=== PATIENT | female | born 1985 | race Asian ===

== ENCOUNTER 2016-11-11 10:10 | Emergency (ER) | payer OTHER ==
[~2016-11-11] VITALS: Ht 162.6 cm; Wt 98.5 kg
[2016-11-11 10:22] VITALS: Ht 162.6 cm; Wt 98.5 kg
[2016-11-11] MEDS ORDERED: TRAM50TA2 PO (11:16)
[2016-11-11] MEDS ORDERED: NAPR-260 PO (11:16)
[2016-11-11] MEDS ORDERED: ACET500C5 PO (11:17)
[2016-11-11] MEDS ORDERED: CYCL-319 PO (11:17)
--- NOTE | 2016-11-11 11:24 | ERD ---
ER Documentation Chief Complaint Date/Time DATE: 11/11/16 TIME: 11:20 Chief Complaint Pt with neck pain X 1 week, worst today. No injuries reported. HPI This is a 31-year-old female who presents to the emergency department today complaining of neck pain for the past 5 days and worse over the last couple of days. States she has taken Tylenol with limited improvement. 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 Patient denies any sore throat, chest,. Denies any fevers or chills. ROS All systems reviewed and are negative except as per history of present illness. Medications Home Meds Active Scripts Cyclobenzaprine Hcl* (Cyclobenzaprine Hcl*) 10 Mg Tablet, 10 MG PO QHS, #7 TAB Prov:ROSE JOHNSON-C 11/11/16 Acetaminophen* (Tylophen*) 500 Mg Capsule, 1 CAP PO Q6H Y for PAIN AND OR ELEVATED TEMP, #30 CAP Prov:ROSE JOHNSON PA-C 11/11/16 Naproxen* (Naprosyn*) 500 Mg Tablet, 500 MG PO BID Y for PAIN AND/OR INFLAMMATION, #30 TAB Prov:ROSE JOHNSONC 11/11/16 Tramadol HCl (Tramadol HCl) 50 Mg Tablet, 50 MG PO Q4 Y for PAIN, #20 TAB Prov:ROSE JOHNSON-C 11/11/16 Allergies Allergies: Uncoded Allergies: SULFA DRUGS (Allergy, Intermediate, swollen lips, 11/11/16) PMhx/Soc Medical and Surgical Hx: pt denies Medical Hx, pt denies Surgical Hx Hx Alcohol Use: No Hx Substance Use: No Hx Tobacco Use: No Smoking Status: Never smoker Physical Exam Vitals Vital Signs Date Time Temp Pulse Resp B/P Pulse Ox O2 Delivery O2 Flow Rate FiO2 11/11/16 10:22 98.4 82 18 127/87 99 Physical Exam Const: Obese, no acute distress Head: Atraumatic Eyes: Normal Conjunctiva ENT: Normal External Ears, Nose and Mouth. Throat no erythema no exudate nonno evidence of enlarged lymph node Neck: Full range of motion..~ No meningismus.. No midline tenderness. Bilateral paraspinal tenderness in upper trapezius tendon Resp: Clear to auscultation bilaterally Cardio: Regular rate and rhythm, no murmurs Abd: Soft, non tender, non distended. Normal bowel sounds Skin: No petechiae or rashes Neur: Awake and alert Psych: Normal Mood and Affect Results 24 hrs Current Medications Medications (Trade) Dose Ordered Sig/Bonnie Route PRN Reason Start Time Stop Time Status Last Admin Dose Admin Acetaminophen/ Hydrocodone Bitart ([place] (5/325)) 1 tab ONCE ONCE PO 11/11/16 11:30 11/11/16 11:31 11/11/16 11:18 Procedures/MDM This a 31-year-old female who presents to the emergency department today for neck pain for the past 5 days and worse over the last day. 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 Patient has had no trauma. She has no midline tenderness. She has no radicular symptoms. Patient is afebrile and otherwise well-appearing. She is able to move her neck and have low suspicion for torticollis at this time. I do not feel the patient requires laboratory workup or imaging at this time. Low suspicion for meningitis, strep pharyngitis, peritonsillar abscess, retropharyngeal abscess. There is no evidence of enlarged lymph nodes. Patient symptoms at this time most consistent with musculoskeletal spasm versus strain versus sprain secondary to increased studying. Patient was given [place] here in the emergency department. I did give her a short course of tramadol for home as well as Naprosyn and Tylenol and Flexeril. I have explained to the patient that she needs to apply ice and heat intermittently. I instructed the patient in stretching exercises. Instructed her to make sure that she has her study material at an appropriate level so that she is not constantly looking downwards. Patient understood. At this time the patient is stable for discharge and outpatient management. Patient should follow up with their PCP in the next 1-2 days. They may return to the emergency department sooner for any persistent or worsening of symptoms. Patient understood and agreed with the plan. Departure Diagnosis: Primary Impression: Neck pain Condition: Fair Patient Instructions: Your Neck Muscles, Neck Exercises: Active Neck Rotation, Neck Exercises: Neck Isometrics, Neck Pain, No Trauma, Neck Sprain/Strain Referrals: COMMUNITY CLINICS YOU HAVE RECEIVED A MEDICAL SCREENING EXAM AND THE RESULTS INDICATE THAT YOU DO NOT HAVE A CONDITION THAT REQUIRES URGENT TREATMENT IN THE EMERGENCY DEPARTMENT. FURTHER EVALUATION AND TREATMENT OF YOUR CONDITION CAN WAIT UNTIL YOU ARE SEEN IN YOUR DOCTORS OFFICE WITHIN THE NEXT 1-2 DAYS. IT IS YOUR RESPONSIBILITY TO MAKE AN APPOINTMENT FOR FOLOW-UP CARE. IF YOU HAVE A PRIMARY DOCTOR --you should call your primary doctor and schedule an appointment IF YOU DO NOT HAVE A PRIMARY DOCTOR YOU CAN CALL OUR PHYSICIAN REFERRAL HOTLINE AT IF YOU CAN NOT AFFORD TO SEE A PHYSICIAN YOU CAN CHOSE FROM THE FOLLOWING [facility] [address] [facility] [address] [facility] [address] [facility] [address] [facility] [address] [facility]. [facility]. [address] Additional Instructions: Call your primary care doctor TOMORROW for an appointment during the next 1-2 days.See the doctor sooner or return here if your condition worsens before your appointment time. Take tramadol for severe pain otherwise take Naprosyn or Tylenol or Motrin Take Flexeril for muscle spasms. Take only at night and do not drive while taking this medication. Apply ice and heat intermittently Do neck exercises and stretching ROSE JOHNSON PA-C Nov 11, 2016 11:24
[2016-11-11] MEDS ORDERED: HYDROCODONE/APAP (5/325) TAB PO ONE (11:30)
== END 2016-11-11 11:50 | disposition home or self-care (01) ==
LOC: FTE 10:10
DX: M54.2 Cervicalgia (principal)
CPT/HCPCS: 99284

== ENCOUNTER 2016-11-15 17:38 | Emergency (ER) | payer SELFPAY ==
[~2016-11-15] VITALS: Wt 81.8 kg
[~2016-11-15 17:38] MED LIST: ACET500C5 PO; CYCL-319 PO; NAPR-260 PO; TRAM50TA2 PO
[2016-11-15] MEDS ORDERED: IBUP-1542 PO (18:18)
[2016-11-15] MEDS ORDERED: HYDR-906 PO (18:19)
--- NOTE | 2016-11-15 18:24 | ERD ---
ER Documentation Chief Complaint Date/Time DATE: 11/15/16 TIME: 18:20 Chief Complaint neck pain HPI Patient is a 31-year-old female who presents to the emergency department with neck pain 1 week. Patient was seen here at the [facility] on 11-11-16. At that time she was diagnosed with musculoskeletal pain and muscle spasms. Patient states she has been taking the medication prescribed to her which does alleviate her pain however it is persistent. Patient reports taking Flexeril, naproxen and tramadol for her symptoms. Patient is requesting x-ray imaging at this time. Patient denies any fevers, chills, nausea, vomiting, throat pain, difficulty swallowing, recent falls or trauma. 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 She denies any pain radiating down her back, saddle anesthesia, urinary incontinence, stool incontinence, night pain. ROS All systems reviewed and are negative except as per history of present illness. Medications Home Meds Active Scripts Hydrocodone/Acetaminophen ([place] 5-325 Tablet) 1 Each Tablet, 1 TAB PO Q6H Y for PAIN, #7 TAB Prov:REBA MEDLEY PA-C 11/15/16 Ibuprofen* (Motrin*) 600 Mg Tab, 600 MG PO Q6, #30 TAB Prov:REBA MEDLEY PA-C 11/15/16 Cyclobenzaprine Hcl* (Cyclobenzaprine Hcl*) 10 Mg Tablet, 10 MG PO QHS, #7 TAB Prov:ROSE JOHNSON PA-C 11/11/16 Acetaminophen* (Tylophen*) 500 Mg Capsule, 1 CAP PO Q6H Y for PAIN AND OR ELEVATED TEMP, #30 CAP Prov:ROSE JOHNSON PA-C 11/11/16 Naproxen* (Naprosyn*) 500 Mg Tablet, 500 MG PO BID Y for PAIN AND/OR INFLAMMATION, #30 TAB Prov:ROSE JOHNSON PA-C 11/11/16 Tramadol HCl (Tramadol HCl) 50 Mg Tablet, 50 MG PO Q4 Y for PAIN, #20 TAB Prov:ROSE JOHNSON PA-C 11/11/16 Allergies Allergies: Uncoded Allergies: SULFA DRUGS (Allergy, Intermediate, swollen lips, 11/11/16) PMhx/Soc History of Surgery: No Anesthesia Reaction: No Hx Neurological Disorder: No Hx Respiratory Disorders: No Hx Cardiac Disorders: No Hx Psychiatric Problems: No Hx Miscellaneous Medical Probl: No Hx Alcohol Use: No Hx Substance Use: No Hx Tobacco Use: No FmHx Family History: No diabetes Physical Exam Vitals Vital Signs Date Time Temp Pulse Resp B/P Pulse Ox O2 Delivery O2 Flow Rate FiO2 11/15/16 17:42 98.7 86 20 119/73 97 Physical Exam GENERAL: Well-developed, well-nourished female. Appears in no acute distress. Speaking in full sentences HEAD: Normocephalic, atraumatic. No deformities or ecchymosis. EYE: Pupils equal, round, and reactive to light. EOMs intact. No conjunctival erythema. No eye discharge. ENT: External ear without any masses or tenderness. Auditory canals clear bilaterally. TM visualized bilaterally, non-erythematous, non-bulging. Nasal mucosa pink with no discharge. Oropharynx is pink without any tonsillar erythema or exudates. No uvula deviation. No kissing tonsils. NECK: Supple. No meningismus. Normal ROM of the neck. Nontender to palpation of the cervical midline spine. Lateral paraspinal tenderness of the upper trapezius muscle LUNG: Clear to auscultation bilaterally. No rhonchi, wheezing, rales or coarse breath sounds. HEART: Regular rate and rhythm. No murmurs, rubs or gallops. BACK: No midline tenderness. EXTREMITES: Equal pulses bilaterally. No peripheral clubbing, cyanosis or edema. No unilateral leg swelling. NEUROLOGIC: Alert and oriented to person, place and time. Moving all four extremities. 5/5 strength in all extremities. Normal speech. Steady gait. SKIN: Normal color. Warm and dry. No rashes or lesions. Procedures/MDM ED COURSE: The patient was stable throughout ED course. I kept the patient and/or family informed of laboratory and diagnostic imaging results throughout the ED course. DIAGNOSTIC IMAGING: Read by radiologist. DIAGNOSTIC IMAGING REPORT Patient: JENIFFER WILSON : 1985 Age: 31 Sex: F MR #: [id number] DOS: 11/15/16 1819 Ordering MD: REBA MEDLEY PA-C Location: [facility]TE Room/Bed: PROCEDURE: XR Cervical Spine. CLINICAL INDICATION: Cervical spine pain. TECHNIQUE: AP, lateral and odontoid views of the cervical spine were performed. The images were reviewed on a PACS workstation. COMPARISON: None available FINDINGS: There is diffuse straightening of the cervical spine without reversal of normal cervical lordosis. The vertebral body height and osseous mineralization are normal. There is no evidence of fracture or dislocation. There is no significant facet arthropathy. The uncovertebral joints are unremarkable. There are minimal anterior osteophytes at C4-5 and C5-6 with preservation of the intervertebral disc spaces. There are no abnormal calcifications. The prevertebral soft tissues are normal. No radiopaque foreign bodies are identified. IMPRESSION: 1. Diffuse straightening of the cervical spine which may be related to paraspinal muscle spasm versus positioning. 2. Mild degenerative disc disease at C4-5 and C5-6. 3. No evidence of fracture. RPTAT: HGAS .Robert Garcia MD, MD Date Time Electronically viewed and signed by .Robert Garcia MD, on 11/15/2016 20: 21 .S/ CC: REBA MEDLEY PA-C MEDICATIONS GIVEN: She was offered analgesic vacation however she declined. Patient was advised to notify myself or nursing staff if her pain increased. MEDICAL DECISION MAKING: This is a 31-year-old female who presents with neck pain 1 week. Vital signs were reviewed. Patient was afebrile. She was not hypoxic. ENT exam is normal. Neck exam revealed tenderness to palpation of the bilateral paraspinous muscles of the trapezius muscle. No cervical midline tenderness was noted. Patient was seen here approximately 4 days ago. X-ray imaging was obtained at this time given that patient's pain has persisted. Cervical spine Xrays showed diffuse straightening of the cervical spine which may be related to paraspinal muscle spasm versus positioning. Mild degenerative disc disease at C4-5 and C5- 6. No evidence of fracture. Given these findings, the patients presentation is most consistent with degenerative disc disease of the cervical spine and muscle spasms. I have a much lower clinical concern for cervical spine dislocation, cervical spine fracture, epidural abscess, cervical disk herniation , osteomyelitis, meningitis, whiplash injury, torticollis, strep pharyngitis, peritonsillar abscess, non-traumatic musculoskeletal neck pain or any acute neurological deficit. PRESCRIPTIONS: Ibuprofen [place]. Patient was advised to only take [place] one at rest and not operating any machinery. DISCHARGE: At this time, patient is stable for discharge and outpatient management. Patient provided with a copy of all imaging studies obtained today. RICE therapy and ROM exercises were advised to avoid stiffness. I have instructed the patient to follow-up with his/her primary care physician in 1-2 days. I have discussed with the patient the possibility of needing to see an youth career specialist for further workup and imaging if the pain persists. I have instructed the patient to promptly return to the ER for any new or worsening symptoms including increased pain, swelling, redness, warmth or fever. The patient and/or family expressed understanding of and agreement with this plan. All questions were answered. Home care instructions were provided. Departure Diagnosis: Primary Impression: Neck pain Additional Impression: Muscle spasm Condition: Stable Patient Instructions: Neck Pain, No Trauma Referrals: COMMUNITY CLINICS YOU HAVE RECEIVED A MEDICAL SCREENING EXAM AND THE RESULTS INDICATE THAT YOU DO NOT HAVE A CONDITION THAT REQUIRES URGENT TREATMENT IN THE EMERGENCY DEPARTMENT. FURTHER EVALUATION AND TREATMENT OF YOUR CONDITION CAN WAIT UNTIL YOU ARE SEEN IN YOUR DOCTORS OFFICE WITHIN THE NEXT 1-2 DAYS. IT IS YOUR RESPONSIBILITY TO MAKE AN APPOINTMENT FOR FOLOW-UP CARE. IF YOU HAVE A PRIMARY DOCTOR --you should call your primary doctor and schedule an appointment IF YOU DO NOT HAVE A PRIMARY DOCTOR YOU CAN CALL OUR PHYSICIAN REFERRAL HOTLINE AT IF YOU CAN NOT AFFORD TO SEE A PHYSICIAN YOU CAN CHOSE FROM THE FOLLOWING [facility] [address] [facility] [address] [facility] [facility] [address] [facility] [facility] [address] [facility] [address] [facility]. [facility]. [address] [facility]. [facility] YOU HAVE RECEIVED A MEDICAL SCREENING EXAM AND THE RESULTS INDICATE THAT YOU DO NOT HAVE A CONDITION THAT REQUIRES URGENT TREATMENT IN THE EMERGENCY DEPARTMENT. FURTHER EVALUATION AND TREATMENT OF YOUR CONDITION CAN WAIT UNTIL YOU ARE SEEN IN YOUR DOCTORS OFFICE WITHIN THE NEXT 1-2 DAYS. IT IS YOUR RESPONSIBILITY TO MAKE AN APPOINTMENT FOR FOLOW-UP CARE. IF YOU HAVE A PRIMARY DOCTOR --you should call your primary doctor and schedule and appointment IF YOU DO NOT HAVE A PRIMARY DOCTOR YOU CAN CALL OUR PHYSICIAN REFERRAL HOTLINE AT . IF YOU CAN NOT AFFORD TO SEE A PHYSICIAN YOU CAN CHOSE FROM THE FOLLOWING [facility] IN[facility]UTIONS: [facility] [address] [place] [address] [facility] [address] [place] [address] [facility] [address] [place] [address] [facility] Hours: Mon-Fri 9:00 AM - 5:00 PM Additional Instructions: Call your primary care doctor TOMORROW for an appointment during the next 1-2 days.See the doctor sooner or return here if your condition worsens before your appointment time. Unable to rule out any ligament or tendon injuries at this time. Patient was advised that she will need to follow-up with an youth career specialist for further management of her symptoms. See referral information. REBA MEDLEY PA-C Nov 15, 2016 18:24
--- NOTE | 2016-11-15 20:21 | RADRPT ---
PROCEDURE: XR Cervical Spine. CLINICAL INDICATION: Cervical spine pain. TECHNIQUE: AP, lateral and odontoid views of the cervical spine were performed. The images were re viewed on a PACS workstation. COMPARISON: None available FINDINGS: There is diffuse straightening of the cervical spine without reversal of normal cervical lordosis. The vertebral body height and osseous mineralization are normal. There is no evidence of fracture or dislocation. There is no significant facet arthropathy. The uncovertebral joints are unremarkable. There are minimal anterior osteophytes at C4-5 and C5-6 with preservation of the intervertebral disc spaces. There are no abnormal calcifications. The prevertebral soft tissues are normal. No radiopaq ue foreign bodies are identified. IMPRESSION: 1. Diffuse straightening of the cervical spine which may be related to paraspinal muscle spasm vers us positioning. 2. Mild degenerative disc disease at C4-5 and C5-6. 3. No evidence of fracture. RPTAT: HGAS .Robert Garcia MD, MD Date Time Electronically viewed and signed by .Robert Garcia MD, on 11/15/2016 20:21 .S/
[2016-11-15 21:10] VITALS: BP 120/78; PULSE 75; RESP 18; TEMP 98.6
== END 2016-11-15 21:12 | disposition home or self-care (01) ==
LOC: FTE 17:38
DX: M54.2 Cervicalgia (principal); M62.838 Other muscle spasm
CPT/HCPCS: 72040